=== PATIENT | male | born 1955 | race African-American/Black ===

== ENCOUNTER 2024-08-02 13:55 | Emergency (ER) | payer BC, MEDICAID ==
[~2024-08-02] VITALS: Ht 182.9 cm; Wt 97.0 kg
[2024-08-02 13:57] VITALS: O2SAT 100
[2024-08-02 14:01] VITALS: BP 139/81; PULSE 67; RESP 18; TEMP 98.7; O2SAT 99
[2024-08-02 15:09] LABS: BASOPHILS % 0.8 % (0.0-2.0); EOSINOPHILS % 0.4 % (0.0-5.0); HEMATOCRIT. 41.5 % (42.0-52.0); HEMOGLOBIN. 13.9 g/dL (14.0-18.0); LYMPHOCYTES % 7.8 % (20.0-50.0); MEAN CORPUSCULAR HEMOGLOBIN 28.1 pg (28.0-32.0); MEAN CORPUSCULAR HGB CONC 33.6 g/dL (31.0-37.0); MEAN CORPUSCULAR VOLUME 83.7 fL (80.0-94.0); PLATELET 284 x1000/uL (130-400); RED BLOOD CELL COUNT 4.95 mill/uL (4.7-6.1); RED CELL DISTRIBUTION WIDTH 13.5 % (11.6-14.6); WHITE BLOOD COUNT 10.9 x1000/uL (4.5-11.0)
[2024-08-02 15:13] LABS: CHLORIDE 106 mEq/L (98-107); SODIUM 138 mEq/L (136-145)
[2024-08-02 15:15] LABS: CALCIUM 9.7 mg/dL (8.7-10.4); CARBON DIOXIDE 26 mEq/L (21-32)
[2024-08-02 15:20] LABS: CREATININE 1.2 mg/dL (0.6-1.3); GLUCOSE 134 mg/dL (70-105); UREA NITROGEN BLOOD 19 mg/dL (9-23)
[2024-08-02 15:32] LABS: ALANINE AMINOTRANSFERASE 14 IU/L (10-49); ALBUMIN 4.5 g/dL (3.2-4.8); ASPARTATE AMINOTRANSFERASE 24 IU/L (<34); BILIRUBIN DIRECT 0.2 mg/dL (<=3.0); PROTHROMBIN TIME 11.3 sec (9.6-11.0)
[2024-08-02 15:33] LABS: BILIRUBIN TOTAL 0.9 mg/dL (0.1-1.0); PROTEIN TOTAL 7.9 g/dL (6.0-8.3)
[2024-08-02 15:39] LABS: TROPONIN I HIGH SENSITIVITY < 4 ng/L (3.0-53)
[2024-08-02 15:58] LABS: ETHANOL BLOOD < 10 mg/dL (<10)
[2024-08-02] MEDS ORDERED: CLONIDINE 0.1MG TABLET PO PRN (17:15)
[2024-08-02] MEDS ORDERED: ACETAMINOPHEN 325MG TABLET PO PRN (17:15)
[2024-08-02] MEDS ORDERED: IPRATROPIUM/ALBUTEROL 0.5-3(2.5)MG/3ML NEB NEB PRN (17:15)
[2024-08-02] MEDS ORDERED: ONDANSETRON HCL 4MG/2ML INJ IV PRN (17:15)
[2024-08-02] MEDS ORDERED: ASPIRIN 325MG EC TABLET PO ONE (17:30)
[2024-08-02] MEDS ORDERED: ENOXAPARIN 40MG/0.4ML SYR SUBCUT SCH (18:00)
[2024-08-02 18:57] LABS: TROPONIN I HIGH SENSITIVITY < 4 ng/L (3.0-53)
[2024-08-02] MEDS ORDERED: ZOLPIDEM TARTRATE 5MG TABLET PO PRN (21:00)
== END 2024-08-02 22:05 | disposition left against medical advice (07) ==
LOC: ER 13:55 → EDBEDREQ 17:04 → CANBEDREQ 22:02 → ER 22:05
DX: R07.89 Other chest pain (principal); I10 Essential (primary) hypertension; Z98.890 Other specified postprocedural states
CPT/HCPCS: 36415; 71045; 74176; 80048; 80076; 80320; 83880; 84484; 85025; 93005; 93970; 99285; G0480